=== PATIENT | female | born 1965 | race Caucasian/White ===

== ENCOUNTER 2019-12-14 12:43 | Outpatient (CLI) | payer OTHER, SELFPAY | END 2019-12-14 20:43 | disposition home or self-care (01) | LOC: SLB 12:43 | PROVIDERS: ATTEND Otolaryngology | DX: Z03.818 Encounter for observation for suspected exposure to other biological agents ruled out (principal) | CPT/HCPCS: U0003-CS ==

== ENCOUNTER 2020-01-17 15:33 | Outpatient (CLI) | payer OTHER, SELFPAY | END 2020-01-17 22:21 | disposition home or self-care (01) | LOC: SLB 15:33 | PROVIDERS: ATTEND Otolaryngology | DX: Z03.818 Encounter for observation for suspected exposure to other biological agents ruled out (principal) | CPT/HCPCS: C9803; U0003 ==

== ENCOUNTER 2021-06-25 05:43 | Day surgery (SDC) | payer OTHER ==
[~2021-06-25] VITALS: Ht 170.2 cm; Wt 73.0 kg
[2021-06-25] MEDS ORDERED: SIMETHICONE 40 MG/0.6 ML ML ONE (07:24)
[2021-06-25] MEDS: MIDAZOLAM HCL 5 MG/5 ML VIAL ONE ×3 (08:11→08:26)
[2021-06-25] MEDS: fentaNYL CITRATE/PF 100 MCG/2 ML AMP ONE ×3 (08:11→08:27)
[2021-06-25] MEDS ORDERED: MIDAZOLAM HCL 5 MG/5 ML VIAL ONE (08:30)
[2021-06-25] MEDS ORDERED: fentaNYL CITRATE/PF 100 MCG/2 ML AMP ONE (08:32)
[2021-06-25 12:35] VITALS: BP_SYST 125
== END 2021-06-25 10:15 | disposition home or self-care (01) ==
LOC: SDS 05:43
PROVIDERS: ATTEND Surgery
DX: K62.5 Hemorrhage of anus and rectum (principal); K64.8 Other hemorrhoids; K64.4 Residual hemorrhoidal skin tags; K62.89 Other specified diseases of anus and rectum; K60.2 Anal fissure, unspecified; Z79.899 Other long term (current) drug therapy
CPT/HCPCS: 45378; 99152; G0378; J2250; J3010

== ENCOUNTER 2021-09-12 04:51 | Emergency (ER) | payer OTHER, SELFPAY ==
[~2021-09-12] VITALS: Ht 170.2 cm; Wt 75.7 kg
--- NOTE | 2021-09-12 05:00 | NUR ---
LANDON Brooks examining patient.
[2021-09-12 05:30] VITALS: BP_SYST 143
--- NOTE | 2021-09-12 05:34 | NUR ---
Inderjit roberts in [facility] - 09/12/21 at 0535 by [email or web address] LANDON Brooks at bedside examining patient.
--- NOTE | 2021-09-12 05:55 | NUR ---
Swabbed nares for Covid 19 testing.
[2021-09-12 06:16] VITALS: BP_SYST 143
--- NOTE | 2021-09-12 06:16 | NUR ---
Patient given written and verbal discharge instructions by Dr Moore and verbalizes understanding. ER MD discussed with patient the care provided. Patient in stable condition. ID arm band removed. No Rx given. Patient educated on pain management and to follow up with PMD. Pain Scale 2/10.Opportunity for questions provided and answered by Dr Moore.
== END 2021-09-12 06:16 | disposition home or self-care (01) ==
LOC: SED 04:51
DX: J06.9 Acute upper respiratory infection, unspecified (principal); Z20.822 Contact with and (suspected) exposure to COVID-19; Z91.040 Latex allergy status
CPT/HCPCS: 87426; 99283; U0003; 36415

== ENCOUNTER 2022-04-21 11:45 | Outpatient (CLI) | payer OTHER | END 2022-04-21 20:43 | disposition home or self-care (01) | LOC: SRD 11:45 | PROVIDERS: ATTEND Family Medicine | DX: R05.9 Cough, unspecified (principal); M47.814 Spondylosis without myelopathy or radiculopathy, thoracic region | CPT/HCPCS: 71046-TC ==